=== PATIENT | male | born 1960 | race Caucasian/White ===

== ENCOUNTER → 2023-12-20 14:14 | Outpatient (REF) | payer MEDICARE, SELFPAY | LOC: RAD 14:14 | PROVIDERS: ATTENDING PHYSICIAN Internal Medicine Cardiovascular Disease; FAMILY PHYSICIAN Internal Medicine | DX: I10 Essential (primary) hypertension (principal); Z82.49 Family history of ischemic heart disease and other diseases of the circulatory system | CPT/HCPCS: 75571; 93306 ==

== ENCOUNTER → 2024-05-08 08:05 | Outpatient (REF) | payer MEDICARE, SELFPAY | LOC: RCS 08:05 | PROVIDERS: ATTENDING PHYSICIAN Internal Medicine Cardiovascular Disease; FAMILY PHYSICIAN Internal Medicine | DX: E78.00 Pure hypercholesterolemia, unspecified (principal); I10 Essential (primary) hypertension; Z82.49 Family history of ischemic heart disease and other diseases of the circulatory system; I77.819 Aortic ectasia, unspecified site | CPT/HCPCS: 93306 ==

== ENCOUNTER → 2024-05-30 07:35 | Outpatient (REF) | payer MEDICARE, SELFPAY | LOC: RAD 07:35 | PROVIDERS: ATTENDING PHYSICIAN Internal Medicine Cardiovascular Disease; FAMILY PHYSICIAN Internal Medicine | DX: I77.819 Aortic ectasia, unspecified site (principal); E78.00 Pure hypercholesterolemia, unspecified; I10 Essential (primary) hypertension | CPT/HCPCS: 71270; Q9967 ==

== ENCOUNTER → 2024-10-02 08:13 | Outpatient (REF) | payer MEDICARE, SELFPAY | LOC: RAD 08:13 | PROVIDERS: ATTENDING PHYSICIAN Internal Medicine | DX: R73.01 Impaired fasting glucose (principal); E04.1 Nontoxic single thyroid nodule | CPT/HCPCS: 76536 ==

== ENCOUNTER → 2024-10-22 09:26 | Outpatient (REF) | payer MEDICARE, SELFPAY ==
[2024-10-22 09:50] VITALS: BP 148/97; BP_SYST 58
== END ==
LOC: RADI 09:26
PROVIDERS: ATTENDING PHYSICIAN Internal Medicine
DX: E04.1 Nontoxic single thyroid nodule (principal)
CPT/HCPCS: 88173; 10005

== ENCOUNTER → 2024-12-25 08:12 | Outpatient (REF) | payer MEDICARE, SELFPAY | LOC: RCS 08:12 | PROVIDERS: ATTENDING PHYSICIAN Internal Medicine Cardiovascular Disease; FAMILY PHYSICIAN Internal Medicine | DX: I77.819 Aortic ectasia, unspecified site (principal) | CPT/HCPCS: 93306 ==

== ENCOUNTER → 2025-06-22 06:50 | Outpatient (REF) | payer MEDICARE, SELFPAY | LOC: RAD 06:50 | PROVIDERS: ATTENDING PHYSICIAN Physician Assistant; FAMILY PHYSICIAN Internal Medicine | DX: E04.2 Nontoxic multinodular goiter (principal) | CPT/HCPCS: 76536 ==